=== PATIENT | female | born 1965 | race Caucasian/White ===

== ENCOUNTER → 2022-10-24 13:09 | Outpatient (CLI) | payer OTHER, SELFPAY ==
--- NOTE | ~2022-10-24 | MM_ITS ---
EXAMINATION: MM scrn martha implant BI w ritu HISTORY: Screening mammogram TECHNIQUE: Craniocaudal and mediolateral oblique 3-D tomosynthesis images with implant displacement a nd synthetic 2-D images were generated. Craniocaudal and mediolateral oblique views of the breasts wi thout implant displacement were obtained using full field digital mammography. CAD analysis was submi tted and interpreted. COMPARISON: No prior mammogram is available for comparison at this institution. BREAST PARENCHYMAL COMPOSITION: FINDINGS: There is a focal asymmetry in the upper aspect of the right breast on MLO view, not confirmed on impl ant displaced or CC views. No suspicious masses, calcifications or architectural distortion in the le ft breast to suggest malignancy. IMPRESSION: 1. Focal asymmetry superiorly in the right breast on MLO view. 2. Additional mammographic views and possible breast ultrasound are recommended. BI-RADS Category 0: Incomplete: Needs additional imaging evaluation. Reviewed, dictated and finalized at location A. IMPRESSION: 1. Focal asymmetry superiorly in the right breast on MLO view. 2. Additional mammographic views and possible breast ultrasound are recommended . BI-RADS Category 0: Incomplete: Needs additional imaging evaluation.
== END ==
DX: Z12.31 Encounter for screening mammogram for malignant neoplasm of breast (principal); R92.8 Other abnormal and inconclusive findings on diagnostic imaging of breast
CPT/HCPCS: 77063; 77067

== ENCOUNTER 2022-11-26 07:43 | Outpatient (CLI) | payer OTHER, SELFPAY ==
--- NOTE | ~2022-11-26 | MMUS_ITS ---
EXAMINATION: MM diag martha implant RT w ritu, US breast RT complete HISTORY: Follow-up right breast asymmetries. Possible right breast mass TECHNIQUE: Additional 3-D tomosynthesis images of the right breast were performed and synthetic 2-D i mages were generated. CAD analysis was submitted and interpreted. High resolution complete right long st ultrasound was performed. COMPARISON: 10/24/2022 BREAST PARENCHYMAL COMPOSITION: The breasts are heterogeneously dense, which may obscure small masses FINDINGS: MAMMOGRAPHIC FINDINGS: There is a subpectoral silicone implant. Breast composed of scattered areas of fibroglandular density . A focal area of asymmetry superiorly in the right breast on MLO view is less dense with spot compre ssion views. No discrete mass identified. No suspicious calcifications or architectural distortion. ULTRASOUND: Complete bilateral US of all 4 quadrants of the right breast and retroareolar region was reviewed. An d 9:00, 2 cm from the nipple adjacent to the breast implant there is an oval circumscribed parallel o riented hypoechoic 7 mm mass with echogenic hilum, no internal vascularity and no significant posteri or features, likely benign. IMPRESSION: 1. Probable benign right breast mass measuring 7 mm at 9:00, 2 cm from the nipple. 2. Recommend 6 month follow-up diagnostic right mammogram and Limited right breast ultrasound BI-RADS category 3, probably benign findings. Reviewed, dictated and finalized at location A. IMPRESSION: 1. Probable benign right breast mass measuring 7 mm at 9:00, 2 cm from the nipp le. 2. Recommend 6 month follow-up diagnostic right mammogram and Limited right sharron ast ultrasound BI-RADS category 3, probably benign findings.
== END 2022-11-26 07:44 ==
DX: R92.8 Other abnormal and inconclusive findings on diagnostic imaging of breast (principal)
CPT/HCPCS: 76641; 77061; 77065; G0279

== ENCOUNTER 2023-06-15 14:10 | Outpatient (CLI) | payer OTHER, SELFPAY ==
--- NOTE | ~2023-06-15 | MMUS_ITS ---
EXAMINATION: MM diag martha implant RT w ritu, US breast RT limited HISTORY: Six-month follow-up of probable benign right 7 mm 9:00 breast mass 2 cm from nipple TECHNIQUE: Implant displaced ML, MLO and CC full field and spot 3-D tomosynthesis images of the right breast were performed and synthetic 2-D images were generated. Implant MLO, ML and CC views. CAD john lysis was submitted and interpreted. High resolution targeted 9:00 right breast ultrasound was perfor med. COMPARISON: 11/26/2022 diagnostic right mammogram and complete right breast ultrasound 10/24/2022 bilateral implant screening mammogram BREAST PARENCHYMAL COMPOSITION: The breasts are heterogeneously dense, which may obscure small masses . FINDINGS: MAMMOGRAPHIC FINDINGS: Status post right augmentation mammoplasty. No suspicious mass or architectural distortion, malignant calcification, skin thickening or retractio n or significant new or developing density is detected. ULTRASOUND: Targeted ultrasound at 9:00 2 cm from the nipple reveals no suspicious mass or shadowing, cyst or oth er significant sonographic abnormality. IMPRESSION: 1. No evidence of malignancy 2. Routine annual mammographic screening is recommended BI-RADS Category 1: Negative Reviewed, dictated and finalized at location B. IMPRESSION: 1. No evidence of malignancy 2. Routine annual mammographic screening is recommended BI-RADS Category 1: Negative
== END 2023-06-15 14:11 ==
DX: R92.8 Other abnormal and inconclusive findings on diagnostic imaging of breast (principal)
CPT/HCPCS: 76642; 77061; 77065; G0279